=== PATIENT | male | born 1940 | race Caucasian/White ===

== ENCOUNTER 2017-03-31 12:52 | Emergency (ER) | payer OTHER ==
[2017-03-31 12:57] VITALS: TEMP 98.6
[2017-03-31] MEDS ORDERED: NS 500 ML IV ONE (13:25)
[2017-03-31 13:34] LABS: % IMMATURE GRANULYOCYTES 0.4 % (0.0-1.1); ABSOLUTE IMMATURE GRANULOCYTES 0.02 10^3/uL (0.00-0.10); ADD DIFF? NO; ADD MORPH? NO; ADD SCAN? NO; ATYPICAL LYMPHOCYTE FLAG 0 (0-99); FRAGMENT RBC FLAG 0 (0-99); HEMATOCRIT 45.1 % (40.0-51.0); HEMOGLOBIN 15.3 g/dL (13.7-17.5); LEFT SHIFT FLG 0 (0-99); LIPEMIA HEMOLYSIS FLAG 90 (0-99); MEAN CELL HEMOGLOBIN 33.6 pg (27.9-34.1); MEAN CELL HEMOGLOBIN CONCENTR. 33.9 g/dL (32.4-36.7); MEAN CELL VOLUME 99.1 fL (81.5-99.8); MEAN PLATELET VOLUME 9.8 fL (8.7-11.7); PLATELET CLUMPS FLAG 0 (0-99); PLATELET COUNT 161 10^3/uL (150-400); RED BLOOD CELL COUNT 4.55 10^6/uL (4.40-6.38); RED CELL DISTRIBUTION WIDTH 14.1 % (11.5-15.2)
[2017-03-31 13:45] LABS: ALANINE AMINOTRANSFERASE 34 IU/L (21-72); ALBUMIN 4.1 g/dL (3.5-5.0); ALKALINE PHOSPHATASE 76 IU/L (38-126); ANION GAP 10 mEq/L (8-16); ASPARTATE AMINOTRANSFERASE 26 IU/L (17-59); BILIRUBIN,TOTAL 1.1 mg/dL (0.1-1.4); BILIRUBIN-CONJUGATED 0.2 mg/dL (0.0-0.5); BILIRUBIN-UNCONJUGATED 0.9 mg/dL (0.0-1.1); CALCIUM 9.8 mg/dL (8.5-10.4); CARBON DIOXIDE 23 mEq/l (22-31); CHLORIDE 104 mEq/L (97-110); CREATININE 1.1 mg/dL (0.7-1.3); GLOMERULAR FILTRATION RATE > 60; GLUCOSE 137 mg/dL (70-100); POTASSIUM 4.4 mEq/L (3.5-5.2); SODIUM 137 mEq/L (134-144); TOTAL PROTEIN 7.2 g/dL (6.3-8.2)
[2017-03-31] MEDS ORDERED: IOPAMIDOL (ISOVUE-300) 100 ML BTL ONE (13:53)
--- NOTE | 2017-03-31 14:05 | EDPHY ---
H & P Time Seen by Provider: 03/31/17 13:03 HPI/ROS: HPI Kidney stones, blood in urine. 77-year-old male by private vehicle with his . This patient has a long history of uric acid stones. He has passed many of the stones over the years. He reports also that he has had intermittent gross hematuria usually associated with physical activity the preceding day for 3-4 months now. His primary care physician is aware of this. He reports that he had some hematuria last night which she still reports seemed a little more than usual. He woke up this morning with lower abdominal pain described as cramping and sharp across his abdomen a this morning. He reports he had some nausea and 1 episode of nonbilious, nonbloody vomiting this morning. He reports this pain is better. However he was concerned about the intensity of this pain called his primary care physician. He was told to come to the emergency department to get a CT scan. No fever. Denies any flank pain. No other complaints. ROS: Constitutional: No fever, no chills. No weakness. Eyes: No discharge. No changes in vision. ENT: No sore throat. No nasal congestion or rhinorrhea. Respiratory: No cough. No shortness of breath. Cardiac: No chest pain, no palpitations. Gastrointestinal: As above, no diarrhea. Genitourinary: As above. No dysuria or increased frequency with urination. Musculoskeletal: No back pain. No neck pain. No myalgias or arthralgias. Skin: No rashes. Neurological: No headache. No focal weakness or altered sensation. Past medical history: As above. He does not currently have a urologist. He does not take any prescription medications. He has a local primary care physician. Social history: Nonsmoker. Here with his . No alcohol. Physical Exam: General Appearance: Alert, no distress. This patient is responding to questions appropriately and in full sentences. This patient appears well- hydrated and well-nourished. Eyes: Pupils equal and round no pallor or injection. No lid edema, erythema or injection. Respiratory: There are no retractions, lungs are clear to auscultation with good air movement bilaterally. Cardiovascular: Regular rate and rhythm. No murmur. Gastrointestinal: Abdomen is soft, moderately distended which I feel is his baseline habitus, vague and mild tenderness on palpation across lower abdomen, no masses, bowel sounds normal. No focal tenderness at McBurney's point. No Mendenhall sign. Neurological: Motor sensory function is grossly intact. Cranial nerves are normal. Gait is normal. Skin: Warm and dry, no rashes. Musculoskeletal: Neck is supple and nontender. No CVA tenderness on palpation bilaterally. Extremities are symmetrical. All joints range without pain or impingement. Psychiatric: No agitation. No depression. Database: EKG: Imaging: CT scan of abdomen and pelvis with IV contrast: Significant for 10 mm stone, mid pelvis on the right with moderate hydronephrosis. There is associated perinephric fluid as well. Stone has about 5 cm to go before disease in the bladder. 2 calculi are noted in the bladder 8 mm on the right side 7 mm on the left side. 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 Contrast flow is seen in the left ureter. Results were discussed with staff radiologist Dr. Jared Arroyo. Procedures: Emergency department course: IV placed. He was started on IV normal saline with 500 cc to be given over the next hour. He declines pain medication and antiemetics at this time. He consents to CT imaging of his abdomen and pelvis. 3:10 p.m., patient re-evaluated. Resting comfortably at this time. He is not in any significant pain. I discussed the results of his CT scan as above. We are still waiting on a urinalysis. Urology paged for probable outpatient management. Time 3:20 p.m., spoke with on-call urologist Dr. Lito Dodge. Results of CT scan were discussed in detail with Dr. Dodge. Current medical history and presentation to the emergency department as well as blood work discussed. Dr. Dodge would like to see this patient in his clinic on Sunday. This plan was discussed with the patient. Patient feels comfortable going home. He has been given Dr. Dodge's information. He will call his office on Sunday. Return to emergency department precautions were reviewed in detail with the patient and his . All of their questions were answered. The patient was discharged home in good condition. Differential Diagnosis: The differential diagnosis on this patient includes but is not limited to kidney stone, constipation, appendicitis, AAA, volvulus. This represents a partial list of diagnoses considered. These considerations are based on history , physical exam, past history, reassessment and diagnostic testing. Smoking Status: Former smoker Constitutional: Initial Vital Signs Temperature (C) 37 C 03/31/17 12:52 Heart Rate 73 03/31/17 12:52 Respiratory Rate 16 03/31/17 12:52 Blood Pressure 157/102 H 03/31/17 12:52 O2 Sat (%) 94 03/31/17 12:52 O2 Delivery Mode Room Air Allergies/Adverse Reactions: No Known Allergies Allergy (Unverified 03/31/17 12:57) Home Medications: Medication Instructions Recorded NK [No Known Home Meds] 03/31/17 Medical Decision Making - Data Points Laboratory Results: Laboratory Results 03/31/17 13:20 03/31/17 13:20 03/31/17 03/31/17 13:20 13:20 WBC 5.70 10^3/uL 10^3/uL (3.80-9.50) RBC 4.55 10^6/uL 10^6/uL (4.40-6.38) Hgb 15.3 g/dL g/dL (13.7-17.5) Hct 45.1 % % (40.0-51.0) MCV 99.1 fL fL (81.5-99.8) MCH 33.6 pg pg (27.9-34.1) MCHC 33.9 g/dL g/dL (32.4-36.7) RDW 14.1 % % (11.5-15.2) Plt Count 161 10^3/uL 10^3/uL (150-400) MPV 9.8 fL fL (8.7-11.7) Neut % (Auto) 76.2 % H % (39.3-74.2) Lymph % (Auto) 16.0 % % (15.0-45.0) [place] % (Auto) 6.8 % % (4.5-13.0) Eos % (Auto) 0.2 % L % (0.6-7.6) Baso % (Auto) 0.4 % % (0.3-1.7) Nucleat RBC Rel Count 0.0 % % (0.0-0.2) Absolute Neuts (auto) 4.35 10^3/uL 10^3/uL (1.70-6.50) Absolute Lymphs (auto) 0.91 10^3/uL L 10^3/uL (1.00-3.00) Absolute Monos (auto) 0.39 10^3/uL 10^3/uL (0.30-0.80) Absolute Eos (auto) 0.01 10^3/uL L 10^3/uL (0.03-0.40) Absolute Basos (auto) 0.02 10^3/uL 10^3/uL (0.02-0.10) Absolute Nucleated RBC 0.00 10^3/uL 10^3/uL (0-0.01) Immature Gran % 0.4 % % (0.0-1.1) Immature Gran # 0.02 10^3/uL 10^3/uL (0.00-0.10) Sodium 137 mEq/L mEq/L (134-144) Potassium 4.4 mEq/L mEq/L (3.5-5.2) Chloride 104 mEq/L mEq/L (97-110) Carbon Dioxide 23 mEq/l mEq/l (22-31) Anion Gap 10 mEq/L mEq/L (8-16) BUN 22 mg/dL mg/dL (7-23) Creatinine 1.1 mg/dL mg/dL (0.7-1.3) Estimated GFR > 60 Glucose 137 mg/dL H mg/dL (70-100) Calcium 9.8 mg/dL mg/dL (8.5-10.4) Total Bilirubin 1.1 mg/dL mg/dL (0.1-1.4) Conjugated Bilirubin 0.2 mg/dL mg/dL (0.0-0.5) Unconjugated Bilirubin 0.9 mg/dL mg/dL (0.0-1.1) AST 26 IU/L IU/L (17-59) ALT 34 IU/L IU/L (21-72) Alkaline Phosphatase 76 IU/L IU/L (38-126) Total Protein 7.2 g/dL g/dL (6.3-8.2) Albumin 4.1 g/dL g/dL (3.5-5.0) Lipase 72 IU/L IU/L (23-300) Medications Given: Discontinued Medications Sodium Chloride (Ns) 500 mls @ 0 mls/hr IV EDNOW ONE; Wide Open PRN Reason: Protocol Stop: 03/31/17 13:26 Last Admin: 03/31/17 14:43 Dose: 500 mls Departure - Departure Disposition: Home, Routine, Self-Care Clinical Impression: Hematuria, Bilateral kidney stones Condition: Good Instructions: Kidney Stones (ED) Additional Instructions: Read and follow provided instructions. Follow-up with Dr. Dodge of the Urology service as instructed on Sunday for further evaluation and management of your kidney stones. Keep yourself well hydrated, drink lots of fluids. Take your medication as prescribed. Return to the emergency department for worsening pain, vomiting, fever or other serious concerns. Referrals: Diego Gibbs MD [Primary Care Provider] - As per Instructions
[2017-03-31 15:51] LABS: COLOR YELLOW; LEUKOCYTE ESTERASE,URINE NEGATIVE (NEGATIVE); NITRITE,URINE NEGATIVE (NEGATIVE)
[2017-03-31 15:56] LABS: MUCUS TRACE /lpf (NONE-1+); RBC,URINE 50-182 /hpf (0-3)
[2017-03-31 16:13] VITALS: BP 144/74; PULSE 82; RESP 18; O2SAT 96
== END 2017-03-31 16:13 | disposition home or self-care (01) ==
DX: N20.0 Calculus of kidney (principal); E86.9 Volume depletion, unspecified; Z87.891 Personal history of nicotine dependence
CPT/HCPCS: 74177; 96360; 99285; Q9967

== ENCOUNTER → 2017-05-31 | Outpatient (CLI) | payer OTHER | LOC: FIMAGING 14:07 | PROVIDERS: ATTEND Urology | DX: N20.0 Calculus of kidney (principal) ==